=== PATIENT | female | born 1995 | race Caucasian/White ===

== ENCOUNTER 2017-10-27 17:48 | Outpatient (CLI) | payer OTHER | END 2017-10-27 19:15 | disposition home or self-care (01) | LOC: OBT 17:48 → L-D 17:50 → OBT 19:15 | DX: O26.843 Uterine size-date discrepancy, third trimester (principal); Z3A.39 39 weeks gestation of pregnancy | CPT/HCPCS: 76815; 76818 ==

== ENCOUNTER 2017-11-03 10:36 | Inpatient (IN) | payer OTHER ==
[2017-11-03] MEDS: LACTATED RINGER'S 1,000 ML IV (11:29)
[2017-11-03] MEDS ORDERED: LIDOCAINE 1% (MPF) 30 ML INJ INJ (11:30)
[2017-11-03] MEDS ORDERED: OXYTOCIN 30 UNITS/LR 500 ML IV ×2 (11:30→17:30)
[2017-11-03] MEDS ORDERED: METHYLERGONOVINE 0.2 MG INJ IM ×2 (11:30→17:30)
[2017-11-03] MEDS ORDERED: CARBOPROST 250 MCG INJ IM ×2 (11:30→17:30)
[2017-11-03] MEDS ORDERED: BUTORPHANOL 2 MG INJ IV (11:30)
[2017-11-03] MEDS ORDERED: MISOPROSTOL 200 MCG TAB PR ×2 (11:30→17:30)
[2017-11-03 11:43] LABS: ADD MAN DIFF? NO
[2017-11-03 11:48] LABS: BASOPHILS % 0.2 % (0.0-2.0); EOSINOPHILS # 0.1 10^3/ul (0.0-0.5); EOSINOPHILS % 0.5 % (0.0-7.0); HEMATOCRIT 36.6 % (37.0-47.0); LYMPHOCYTES # 1.9 10^3/ul (0.8-2.9); LYMPHOCYTES % 19.4 % (15.0-51.0); MEAN CORPUSCULAR HEMOGLOBIN 29.1 pg (29.0-33.0); MEAN CORPUSCULAR HGB CONC 32.8 g/dl (32.0-37.0); MEAN CORPUSCULAR VOLUME 88.8 fl (82.0-101.0); MEAN PLATELET VOLUME 12.7 fl (7.4-10.4); MONOCYTE # 0.4 10^3/ul (0.3-0.9); MONOCYTES % 4.2 % (0.0-11.0); NEUTROPHIL # 7.3 10^3/ul (1.6-7.5); NEUTROPHILS % 74.8 % (39.0-77.0); PLATELET COUNT 151 10^3/UL (140-415); RED BLOOD COUNT 4.12 10^6/ul (4.20-5.40); RED CELL DISTRIBUTION WIDTH 14.3 % (11.5-14.5)
[2017-11-03 11:48] LABS: WHITE BLOOD COUNT 9.8 10^3/ul (4.8-10.8)
[2017-11-03] MEDS: OXYTOCIN 30 UNITS/LR 500 ML IV ×3 (11:51→17:09)
[2017-11-03 12:48] LABS: INR 0.88; PARTIAL THROMBOPLASTIN TIME 30.2 Sec (25.0-35.0); PT RATIO 0.9
[2017-11-03 13:26] LABS: HEPATITIS B SURFACE ANTIGEN NEGATIVE (NEGATIVE)
[2017-11-03] MEDS: LACTATED RINGER'S 1,000 ML IV* (17:05)
[2017-11-03] MEDS ORDERED: ACETAMINOPHEN 325 MG TAB PO (17:30)
[2017-11-03] MEDS ORDERED: HYDROCODONE/APAP (5/325) TAB PO (17:30)
[2017-11-03] MEDS ORDERED: DIBUCAINE 1% 30 GM OINT PR (17:30)
[2017-11-03] MEDS: WITCH HAZEL/GLYCERIN PAD PR (19:02)
[2017-11-03] MEDS: BENZOCAINE 20% 56 ML SPRAY TOP (19:02)
[2017-11-03] MEDS: LANOLIN 7 GM TUBE TOP (19:03)
[2017-11-03] MEDS: IBUPROFEN 600 MG TAB PO ×2 (19:03→23:51)
[2017-11-03 19:48] LABS: RAPID PLASMA REAGIN NONREACTIVE (NR)
[2017-11-03] MEDS: SENNA/DOCUSATE NA (8.6MG/50MG) TAB PO (21:12)
[2017-11-04] MEDS: LACTATED RINGER'S 1,000 ML IV* ×2 (01:05→09:05)
[2017-11-04] MEDS: IBUPROFEN 600 MG TAB PO ×4 (05:37→23:31)
[2017-11-04 07:20] LABS: ADD MAN DIFF? NO
[2017-11-04 07:24] LABS: WHITE BLOOD COUNT 11.5 10^3/ul (4.8-10.8)
[2017-11-04 07:24] LABS: BASOPHILS % 0.3 % (0.0-2.0); EOSINOPHILS # 0.2 10^3/ul (0.0-0.5); EOSINOPHILS % 1.6 % (0.0-7.0); HEMATOCRIT 33.4 % (37.0-47.0); HEMOGLOBIN 11.1 g/dl (12.0-16.0); LYMPHOCYTES # 2.6 10^3/ul (0.8-2.9); LYMPHOCYTES % 22.5 % (15.0-51.0); MEAN CORPUSCULAR HEMOGLOBIN 29.6 pg (29.0-33.0); MEAN CORPUSCULAR HGB CONC 33.2 g/dl (32.0-37.0); MEAN CORPUSCULAR VOLUME 89.1 fl (82.0-101.0); MEAN PLATELET VOLUME 11.9 fl (7.4-10.4); MONOCYTE # 0.9 10^3/ul (0.3-0.9); MONOCYTES % 7.4 % (0.0-11.0); NEUTROPHIL # 7.8 10^3/ul (1.6-7.5); NEUTROPHILS % 67.4 % (39.0-77.0); PLATELET COUNT 141 10^3/UL (140-415); RED BLOOD COUNT 3.75 10^6/ul (4.20-5.40); RED CELL DISTRIBUTION WIDTH 14.1 % (11.5-14.5)
[2017-11-04] MEDS: SENNA/DOCUSATE NA (8.6MG/50MG) TAB PO ×2 (09:13→21:42)
[2017-11-05] MEDS: IBUPROFEN 600 MG TAB PO (05:47)
[2017-11-05] MEDS ORDERED: DIPHTH/TET/ACEL PERTUSS (ADULT) 0.5 ML VIAL IM* (09:00)
[2017-11-05] MEDS: SENNA/DOCUSATE NA (8.6MG/50MG) TAB PO (09:00)
== END 2017-11-05 14:56 | disposition home or self-care (01) | DRG 775 ==
LOC: OBT 10:36 → L-D 10:36 → OBT 11:11 → L-D 11:13 → PP1 18:38
PROVIDERS: Obstetrics & Gynecology
PROC: 10E0XZZ Delivery of Products of Conception, External Approach (ICD-10-PCS; principal; 2017-11-03)
PROC: 3E033VJ Introduction of Other Hormone into Peripheral Vein, Percutaneous Approach (ICD-10-PCS; 2017-11-03)
DX: O48.0 Post-term pregnancy (principal); Z3A.40 40 weeks gestation of pregnancy; Z37.0 Single live birth
CPT/HCPCS: 85025; 85610; 85730; 86592; 86850; 86900; 86901; 87340